=== PATIENT | male | born 1975 | race Caucasian/White ===

== ENCOUNTER 2019-03-22 12:13 | Emergency (ER) | payer OTHER, BC ==
[~2019-03-22] VITALS: Ht 193 cm; Wt 143.2 kg
[2019-03-22 12:27] VITALS: TEMP 97.6
[2019-03-22 12:55] LABS: COLLECTION METHOD CLEAN CATCH
[2019-03-22] MEDS ORDERED: FLEXERIL 1010 MG/TAB PO (13:09)
[2019-03-22 13:16] LABS: MUCOUS Present /lpf; PH 6 (5-8); SQUAMOUS EPITHELIAL 0-2 /hpf; URINE APPEARANCE Clear; URINE BACTERIA None Seen /hpf; URINE BILIRUBIN Negative (NEGATIVE); URINE BLOOD Negative (NEGATIVE); URINE COLOR Yellow; URINE GLUCOSE Negative (NEGATIVE); URINE KETONE Negative (NEGATIVE); URINE LEUKOCYTE ESTERASE Negative (NEGATIVE); URINE NITRATE Negative (NEGATIVE); URINE PROTEIN(semi-quant) Negative (NEGATIVE); URINE RBC 0-2 /hpf; URINE UROBILINOGEN Negative (NEGATIVE)
[2019-03-22 13:59] LABS: BASO % 0.2 % (0.0-2.0); EOS % 0.3 % (0-4.0); GRAN # 11.5 (1.4-6.5); GRAN % 85.6 % (42.2-75.2); HEMATOCRIT 47.2 % (42.0-52.0); HEMOGLOBIN 15.9 g/dl (13.5-18.0); LYMPH # 1.2 (1.2-3.4); LYMPH % 8.5 % (20.0-51.0); MEAN CELL VOLUME 90 fl (80.0-100.0); MEAN CORPUSCULAR HEMOGLOBIN 30 pg (27.0-31.0); MEAN CORPUSCULAR HGB CONC 34 g/dl (33.0-37.0); MEAN PLATELET VOLUME 9.9 fl (7.4-10.4); MONO # 0.7 (0.1-0.6); PLATELET COUNT 188 K/mm3 (130-400); RED BLOOD COUNT 5.26 M/mm3 (4.20-5.60); REDCELL DISTRIBUTION WIDTH-CV 12.1 % (11.5-14.5)
[2019-03-22 14:09] LABS: ALBUMIN 4.6 gm/dL (3.5-5.0); BILIRUBIN,TOTAL 0.4 mg/dL (0.0-1.0); CALCIUM 9.2 mg/dL (8.4-10.2); CREATININE, serum 0.76 (0.66-1.25); POTASSIUM 4.6 mmol/L (3.4-5.0); TOTAL PROTEIN 8.1 gm/dL (6.4-8.2)
[2019-03-22 14:30] VITALS: BP 131/71; PULSE 78
== END 2019-03-22 14:30 | disposition home or self-care (01) ==
LOC: COL.ER 12:13
PROVIDERS: Emergency Medicine
DX: S01.01XA Laceration without foreign body of scalp, initial encounter (principal); V49.9XXA Car occupant (driver) (passenger) injured in unspecified traffic accident, initial encounter

== ENCOUNTER → 2019-05-20 | Outpatient (CLI) | payer OTHER, BC ==
[~2019-05-20] MED LIST: FLEXERIL 1010 MG/TAB PO
== END ==
LOC: COL.RAD 12:23
DX: M19.032 Primary osteoarthritis, left wrist (principal)

== ENCOUNTER → 2023-07-07 | Outpatient (CLI) | payer BC | LOC: COL.RAD 08:23 | DX: R05.3 Chronic cough (principal) ==